=== PATIENT | female | born 1995 | race Caucasian/White ===

== ENCOUNTER 2017-06-16 13:05 | Inpatient (IN) | payer BC, MEDICAID ==
[2017-06-16] MEDS ORDERED: Acetaminophen 325 MG Tab PO PRN (16:56)
[2017-06-16] MEDS ORDERED: Sodium Chloride 0.9% 10 ML Syringe FLUSH PRN (16:56)
[2017-06-16] MEDS ORDERED: ePHEDrine 50 MG/ML SDV IVPUSH ONE (17:00)
[2017-06-16] MEDS ORDERED: Lactated Ringers 1,000 ML IV SCH ×2 (17:00→22:10)
[2017-06-16] MEDS ORDERED: Penicillin G Potassium 5 MILLUNITS in Sodium Chloride 0.9% 100 ML IV ONE (18:09)
[2017-06-16] MEDS: Lactated Ringers 1,000 ML IV SCH ×2 (18:30→22:05)
--- NOTE | 2017-06-16 21:51 | PCM.PNLD ---
Labor Progress Note - VS & Meds Vital Signs: Last Vital Signs Temp 98.7 F 06/16/17 15:41 Pulse 78 06/16/17 17:07 Resp 16 06/16/17 17:07 BP 130/84 06/16/17 17:07 Pulse Ox Active Medications: Current Medications Acetaminophen (Tylenol) 650 mg PO Q4H PRN PRN Reason: Pain/Fever Lactated Ringer's (Ringers, Lactated) 1,000 mls @ 999 mls/min IV ASDIRECTED VESTA Oxytocin/Sodium Chloride (Pitocin In Ns 30 Unit/500 Ml) 30 unit in 500 mls @ 2 mls/hr IV TITRATE VESTA; Protocol Penicillin G Potassium 2.5 (millunits/ Sodium Chloride) 100 mls @ 200 mls/hr IV Q4H VESTA Lactated Ringer's (Ringers, Lactated) 1,000 mls @ 125 mls/hr IV ASDIRECTED VESTA Last Admin: 06/16/17 18:30 Dose: 125 mls/hr Sodium Chloride (Saline Flush) 10 ml FLUSH ASDIRECTED PRN PRN Reason: Keep Vein Open Discontinued Medications Ephedrine Sulfate (Ephedrine Sulfate) 1 mg IVPUSH ONETIME ONE Stop: 06/16/17 17:01 Penicillin G Potassium 5 (millunits/ Sodium Chloride) 100 mls @ 200 mls/hr IV ONETIME ONE Stop: 06/16/17 18:38 Last Admin: 06/16/17 18:31 Dose: 200 mls/hr - Uterine Contractions Uterine Monitoring Mode: IUPC Contraction Frequency (min): 2-5 Contraction Duration (sec): 60-90 Contraction Intensity: Mild to Moderate Uterine Resting Tone: Soft - Monitoring Monitor Mode: External Ultrasound Heart Rate (FHR) Variability: Moderate (6-25 bmp) Accelerations: Present, 15x15 Decelerations: Variable, Intermittent (<50% x 20 min) Strip Review: Category I - Vaginal Exam Dilation (cm): 2.5 Effacement (Percent): 100 Station: -1 Cervical Position: Midposition Sterile Vaginal Exam Performed By: Jaylen Wilson - Labor Progress (Free Text) Labor Progress: Patient tolerating contractions well. Variable decelerations noted. They have improved with position change, and a fluid bolus. No nausea, vomiting or diarrhea. No fever or chills. VSS Afebrile Abdomen: Gravid Non-tender FHT's 130's to 140's Good acels, variable decelerations noted. Genitourinary: Cervix: 2.5 cm/100%/-1 Station, AROM, Clear fluid. IUPC placed. Extremities: No edema or erythema. A: 40 4/7 weeks gestation Oligohydraminos GBS Positive P: Start Pitocin augmentation Will do Normal saline Amnioinfusion 400 mL bolus then 100 mL per hour maintainence. All questions answered.
[2017-06-16] MEDS: Oxytocin/Normal Saline 30 UNIT/500 ML BAG IV SCH (22:08)
[2017-06-16] MEDS ORDERED: Sodium Chloride 0.9% 1,000 ML IV SCH ×2 (22:30→22:34)
[2017-06-16] MEDS: Penicillin G Potassium 2.5 MILLUNITS in Sodium Chloride 0.9% 100 ML IV SCH (22:35)
[2017-06-16] MEDS ORDERED: Carboprost Tromethamine 250 MCG/1 ML Amp IM PRN (23:05)
[2017-06-16] MEDS ORDERED: Methylergonovine 0.2 MG/1 ML Amp IM PRN (23:05)
[2017-06-16] MEDS ORDERED: Misoprostol 400 MCG (4 X 100 MCG TAB) RECTAL PRN (23:05)
[2017-06-16] MEDS ORDERED: Lidocaine 1% 30 ML SDV INJECT PRN (23:05)
[2017-06-16] MEDS ORDERED: Ondansetron 4 MG/2 ML SDV IV PRN (23:05)
[2017-06-16] MEDS ORDERED: Tranexamic Acid 1,000 MG in Sodium Chloride 0.9% 100 ML IV PRN (23:05)
[2017-06-16] MEDS ORDERED: Sodium Chloride 0.9% 1,000 ML IV ONE (23:15)
[2017-06-17] MEDS ORDERED: Bupivacaine 0.75%/D5W 2 ML Amp ONE ×2 (00:19→05:59)
[2017-06-17] MEDS ORDERED: fentaNYL 100 MCG/2 ML SDV ONE ×2 (00:19→05:59)
[2017-06-17] MEDS ORDERED: EPINEPHrine 1 MG/ML SDV ONE ×2 (00:20→06:00)
--- NOTE | 2017-06-17 00:23 | HP ---
CHIEF COMPLAINT: "I think I am in labor." HISTORY OF PRESENT ILLNESS: A 21-year-old 1, para 0, currently at 40 weeks and 4 days' gestation based on 9-week ultrasound, presents to Labor and Delivery reporting irregular contractions beginning at 16:00 p.m. yesterday and lasting through the night. She presents to Labor and Delivery at approximately 1300 hours today saying contractions are now regular approximately 6 minutes apart. She has been having consistent discharge of a runny bloody mucus since these regular contractions began. She was having recurrent variable decelerations so a Ultrasound was ordered and she was found to have a FREDA of 3.5. She was then admitted and started on IV Penicillin G for Group B strep prophylaxis. She denies nausea, right upper quadrant pain, swelling of hands and feet. Denies shortness of breath, cough, or fevers. The patient reports she has had headaches off and on throughout , but isnot having one at the moment. movement has been good for her today. Thepatient was last seen in clinic on June 11 for a routine OB appointment, whereshe was found to be 1 cm dilated, 50% effaced with fetus at a very high station. HISTORY: The patient has had consistent care with Dr. Berkley Carter starting at 5 weeks' gestation. Estimated due date of June 12, 2017 based on 9-week ultrasound showing a single live intrauterine , 21-week ultrasound showing anterior placenta and normal anatomy. Mother with blood type O positive, antibody screen negative, rubella immune, syphilis nonreactive, HIV nonreactive. Wet prep negative for Trichomonas, clue cells, fungus, and yeast. Positive for group B strep. Flu vaccine given on 11/20/2016. Tdap on 03/23/2017. The patient had asymptomatic urinary tract infection in 1st trimester, treated with Macrobid. PAST MEDICAL HISTORY: 1. Irritable bowel syndrome characterized by long periods of constipation with occasional bloody stools. Celiac workup negative. Throughout , this has been causing a large amount of gas in her abdomen, most notable at this admission where heart rate was hard to picker tender through the abdominal distention. 2. Dysmenorrhea, menorrhagia controlled with hormonal control prior to . PAST SURGICAL HISTORY: None. FAMILY HISTORY: Father alive with high cholesterol. Mother alive with anemia. Brother with a severe peanut allergy. Maternal uncle with seizures. Maternal grandmother alive, anemic. Maternal grandfather alive, high cholesterol and dyslipidemia. Paternal grandmother with ulcerative colitis. Paternal grandfather of heart disease. Family history negative for strokes, sudden , defects, cancer, diabetes, clotting disorders, bleeding disorders, and thyroid disorders. SOCIAL HISTORY: The patient is unmarried, in a romantic relationship with father of the baby, Todd Bro. The patient lives in [place] in her own apartment. 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 Todd is living in [place] for the summer and will be returning to [place] for the school year, where he will be teaching [employer] education. CURRENT MEDICATIONS: vitamins with iron. EXPOSURE MEDICATIONS: Macrobid. ALLERGIES: No known allergies. REVIEW OF SYSTEMS: No headache, no blurry vision, chest pain, shortness of breath, fever, chills, nausea, vomiting, diarrhea, or constipation. The patient has now had swelling. No skin rash. No tobacco use. No alcohol use during . The patient has never been a smoker. OBJECTIVE: Vital Signs: Height 5 feet 11 inches, weight 193 pounds. Temperature of 98.6 Fahrenheit, pulse 78, blood pressure 136/82, respiratory rate is 16 on SpO2 of 100% on room air. HEENT: Atraumatic, normocephalic. Neck: Supple. No adenopathy. Heart: Regular S1, S2 in rate and rhythm. No murmur. Lungs: Clear to auscultation bilaterally. Abdomen: Gravid and nontender. Abdomen is tympanic to percussion. Dream catcher tattoo on right chest wall. Baseline heart rate of 140 with moderate variability. Contractions approximately every 5 to 6 minutes apart. Cervix is 3 cm dilated, 100% effaced. Bag of water intact. Variable decelerations off and on. ADMISSION LABORATORY DATA: Hbg 13.6 Plt 149 FREDA of 3.5. ASSESSMENT: 1. This is a 40 week 4 day intrauterine with increasing force and frequency of contractions based on a 9-week ultrasound 2. 1, para 0. 3. Blood type O positive, rubella immune, group B strep positive. 4. Oligohydraminos- FREDA of 3.5. 5. Variable decelerations noted. 6. Group B strep positive. PLAN: At this time, the patient has been admitted to Labor and Delivery. We are expecting a vaginal delivery that will be augmented with Pitocin to increase frequency of contractions. Penicillin G IV to be started per Group B strep protocol. The patient understands that things may change or arise such that she may need alternative delivery such as section or vacuum assisted vaginal delivery. The patient's questions have been answered. Sheridan Rosario scribing for Dr. Jaylen Wilson [facility] /[id number] MTDD
--- NOTE | 2017-06-17 01:16 | PCM.PRNOTE ---
- Free Text/Narrative Note: Requested to provide analgesia to full term patient in severe pain. Upon entering the room, patient is supine in bed complaining of severe abdominal/ pelvic pain and discomfort. Procedure was discussed with patient including adverse outcomes and expectations. Pt consented to analgesia, SAB/IT. Pt placed into a sitting position. Landmarks for SAB/IT were identified and marked. Hands were washed and appropriate PPE was applied. Back was prepped with betadine x3. A sterile, transparent, fenestrated drape was applied. Excess betadine was removed. Using 3 mL of a 1% lidocaine solution, a skin wheel was placed at the L3/L4 interspace. A 24 ga (4 inch) Pencan spinal needle was inserted until positive for CSF. Negative for heme or paresthesias. Injected fentanyl 25 mcg, sufentanil 15 mcg, and 10.5 mg of a 0.75% bupivacaine solution with an epi wash. Pt was placed left lateral position for approximately 20 minutes. There were zero complications or adverse outcomes. Will continue to monitor. Procedure Date & Time: 06/17/17 [id number] (30 min)
[2017-06-17] MEDS: Lactated Ringers 1,000 ML IV SCH ×2 (01:18→19:23)
[2017-06-17] MEDS: Penicillin G Potassium 2.5 MILLUNITS in Sodium Chloride 0.9% 100 ML IV SCH ×5 (02:22→18:38)
[2017-06-17] MEDS ORDERED: Tranexamic Acid 1,000 MG in Sodium Chloride 0.9% 100 ML IV PRN ×4 (06:27)
[2017-06-17] MEDS ORDERED: Misoprostol 400 MCG (4 X 100 MCG TAB) RECTAL PRN (06:27)
[2017-06-17] MEDS ORDERED: Methylergonovine 0.2 MG/1 ML Amp IM PRN (06:27)
[2017-06-17] MEDS ORDERED: ceFAZolin 2 GM in Premix Bag 1 BAG IV ONE (06:27)
[2017-06-17] MEDS ORDERED: ePHEDrine 50 MG/ML SDV IVPUSH PRN (06:27)
[2017-06-17] MEDS ORDERED: Acetaminophen 325 MG Tab PO PRN (06:27)
[2017-06-17] MEDS ORDERED: Ondansetron 4 MG/2 ML SDV IV PRN (06:27)
[2017-06-17] MEDS ORDERED: Zolpidem 5 MG Tab PO PRN (06:27)
[2017-06-17] MEDS ORDERED: Naloxone 2 MG/2 ML Syringe IVPUSH PRN (06:27)
[2017-06-17] MEDS ORDERED: Citric Acid/Sodium Citrate Solution 30 ML Cup PO ONE (06:27)
[2017-06-17] MEDS ORDERED: Carboprost Tromethamine 250 MCG/1 ML Amp IM ONE (06:27)
[2017-06-17] MEDS ORDERED: diphenhydrAMINE 50 MG/ML SDV IVPUSH PRN (06:27)
[2017-06-17] MEDS ORDERED: Sodium Chloride 0.9% 10 ML Syringe FLUSH PRN (06:27)
[2017-06-17] MEDS ORDERED: Ketorolac 30 MG/ML SDV IVPUSH SCH (06:30)
[2017-06-17] MEDS ORDERED: Lactated Ringers 1,000 ML IV SCH ×3 (06:30)
[2017-06-17] MEDS ORDERED: Oxytocin/Normal Saline 60 UNIT/1,000 ML BAG ONE (06:44)
--- NOTE | 2017-06-17 07:02 | PCM.PNLD ---
Labor Progress Note - VS & Meds Vital Signs: Last Vital Signs Temp 99 F 06/17/17 02:05 Pulse 78 06/17/17 04:15 Resp 14 06/17/17 04:15 BP 122/63 06/17/17 04:15 Pulse Ox 98 06/17/17 04:15 Active Medications: Current Medications Acetaminophen (Tylenol) 650 mg PO Q4H PRN PRN Reason: Pain/Fever Acetaminophen (Tylenol) 650 mg PO Q6H PRN PRN Reason: mild pain or fever Carboprost Tromethamine (Hemabate Ds) 250 mcg IM ASDIRECTED PRN PRN Reason: HEMORRHAGE Diphenhydramine HCl (Benadryl) 25 mg IVPUSH Q6H PRN PRN Reason: Itching or Nausea Docusate Sodium (Colace) 100 mg PO Q12H PRN PRN Reason: Constipation Ephedrine Sulfate (Ephedrine Sulfate) 5 mg IVPUSH SEECOMMENT PRN PRN Reason: Other Lactated Ringer's (Ringers, Lactated) 1,000 mls @ 999 mls/min IV ASDIRECTED [facility] Oxytocin/Sodium Chloride (Pitocin In Ns 30 Unit/500 Ml) 30 unit in 500 mls @ 2 mls/hr IV TITRATE [facility]; Protocol Last Titration: 06/16/17 23:54 Dose: 6 mls/hr Penicillin G Potassium 2.5 (millunits/ Sodium Chloride) 100 mls @ 200 mls/hr IV Q4H [facility] Last Admin: 06/17/17 06:00 Dose: 200 mls/hr Lactated Ringer's (Ringers, Lactated) 1,000 mls @ 125 mls/hr IV ASDIRECTED [facility] Last Admin: 06/17/17 01:18 Dose: 125 mls/hr Sodium Chloride (Normal Saline) 400 mls @ 800 mls/hr IV ASDIRECTED [facility] Last Admin: 06/16/17 22:44 Dose: 800 mls/hr Tranexamic Acid 1,000 mg/ (Sodium Chloride) 110 mls @ 660 mls/hr IV ONETIME PRN PRN Reason: Bleeding Tranexamic Acid 1,000 mg/ (Sodium Chloride) 110 mls @ 660 mls/hr IV ONETIME PRN PRN Reason: Bleeding Cefazolin Sodium/Dextrose 2 gm (/ Premix) 50 mls @ 100 mls/hr IV ONETIME ONE Stop: 06/17/17 06:56 Lactated Ringer's (Ringers, Lactated) 1,000 mls @ 125 mls/hr IV ASDIRECTED VESTA Lactated Ringer's (Ringers, Lactated) 1,000 mls @ 500 mls/hr IV .BOLUS VESTA Ibuprofen (Motrin) 800 mg PO Q8H PRN PRN Reason: mild pain or fever Ketorolac Tromethamine (Toradol) 15 mg IVPUSH Q6H [facility] Stop: 06/17/17 18:31 Lidocaine HCl (Xylocaine-Mpf 1%) 10 ml INJECT ASDIRECTED PRN PRN Reason: Perineal Repair Methylergonovine Maleate (Methergine) 0.2 mg IM ASDIRECTED PRN PRN Reason: Hemorrhage Methylergonovine Maleate (Methergine) 0.2 mg IM ONETIME PRN PRN Reason: Excessive Vaginal Bleeding Misoprostol (Cytotec) 800 mcg RECTAL ASDIRECTED PRN PRN Reason: Hemorrhage Misoprostol (Cytotec) 800 mcg RECTAL ASDIRECTED PRN PRN Reason: Excessive bleeding Naloxone HCl (Narcan) 0.1 mg IVPUSH SEECOMMENT PRN PRN Reason: Respiratory Depression Ondansetron HCl (Zofran) 4 mg IV Q4H PRN PRN Reason: Nausea/Vomiting Ondansetron HCl (Zofran) 4 mg IV Q4H PRN PRN Reason: Nausea/Vomiting Oxycodone/Acetaminophen (Percocet 325-5 Mg) 1 - 2 tab PO Q4H PRN PRN Reason: Pain (moderate 4-6) Simethicone (Simethicone) 160 mg PO QID [facility] Sodium Chloride (Saline Flush) 10 ml FLUSH ASDIRECTED PRN PRN Reason: Keep Vein Open Sodium Chloride (Saline Flush) 10 ml FLUSH ASDIRECTED PRN PRN Reason: Keep Vein Open Zolpidem Tartrate (Ambien) 5 mg PO BEDTIME PRN PRN Reason: Insomnia Discontinued Medications Bupivacaine HCl/Dextrose (Marcaine 0.75% Spinal) Confirm Administered Dose 2 ml .ROUTE .STK-MED ONE Stop: 06/17/17 00:20 Bupivacaine HCl/Dextrose (Marcaine 0.75% Spinal) Confirm Administered Dose 2 ml .ROUTE .STK-MED ONE Stop: 06/17/17 06:00 Carboprost Tromethamine (Hemabate Ds) 250 mcg IM ONETIME ONE Stop: 06/17/17 06:28 Citric Acid/Sodium Citrate (Bicitra Solution) 30 ml PO ONETIME ONE Stop: 06/17/17 06:28 Ephedrine Sulfate (Ephedrine Sulfate) 1 mg IVPUSH ONETIME ONE Stop: 06/16/17 17:01 Epinephrine HCl (Adrenalin) Confirm Administered Dose 1 mg .ROUTE .STK-MED ONE Stop: 06/17/17 00:21 Epinephrine HCl (Adrenalin) Confirm Administered Dose 1 mg .ROUTE .STK-MED ONE Stop: 06/17/17 06:01 Fentanyl (Sublimaze) Confirm Administered Dose 100 mcg .ROUTE .STK-MED ONE Stop: 06/17/17 00:20 Fentanyl (Sublimaze) Confirm Administered Dose 100 mcg .ROUTE .STK-MED ONE Stop: 06/17/17 06:00 Penicillin G Potassium 5 (millunits/ Sodium Chloride) 100 mls @ 200 mls/hr IV ONETIME ONE Stop: 06/16/17 18:38 Last Admin: 06/16/17 18:31 Dose: 200 mls/hr Sodium Chloride (Normal Saline) 600 mls @ 100 mls/hr IV ASDIRECTED ONE Stop: 06/17/17 05:14 Last Admin: 06/17/17 05:39 Dose: 100 mls/hr Tranexamic Acid 1,000 mg/ (Sodium Chloride) 110 mls @ 660 mls/hr IV ONETIME PRN PRN Reason: Bleeding Lactated Ringer's (Ringers, Lactated) 1,000 mls @ 125 mls/hr IV ASDIRECTED VESTA Oxytocin/Sodium Chloride (Pitocin In Ns 30 Unit/500 Ml) Confirm Administered Dose 60 unit in 1,000 mls @ as directed .ROUTE .STK-MED ONE Stop: 06/17/17 06:45 Oxycodone/Acetaminophen (Percocet 325-5 Mg) 2 tab PO Q4H PRN PRN Reason: Pain (moderate 4-6) Sufentanil Citrate (Sufenta) Confirm Administered Dose 50 mcg .ROUTE .STK-MED ONE Stop: 06/17/17 00:21 Sufentanil Citrate (Sufenta) Confirm Administered Dose 50 mcg .ROUTE .STK-MED ONE Stop: 06/17/17 06:01 - Uterine Contractions Uterine Monitoring Mode: IUPC Contraction Frequency (min): 2-3 Contraction Duration (sec): 60-70 Contraction Intensity: Moderate to Strong Uterine Resting Tone: Soft - Monitoring Monitor Mode: External Ultrasound Heart Rate (FHR) Variability: Moderate (6-25 bmp) Accelerations: Present, 15x15 Decelerations: Variable, Intermittent (<50% x 20 min) Strip Review: Category I - Vaginal Exam Dilation (cm): 4+ Effacement (Percent): 100 Station: -1 Cervical Position: Midposition Sterile Vaginal Exam Performed By: Riaz Adams Vaginal Exam Comment: Amnioinfusion with normal saline - Labor Progress (Free Text) Labor Progress: The patient has had a intrathecal that has worn off. She is very uncomfortable. She was having late decelerations during the night after the intrathecal and the Pitocin was turned off and the strip improved with good acel's. Her cervix did not change in 4 hours so I was going to turn the Pitocin on but the patient has declined any more Pitocin and with her decelerations and arrest of descent a Primary section was called. the risks, benefits, complications of the section was discussed. Informed consent was obtained and signed. All questions answered.
[2017-06-17] MEDS: Oxytocin/Normal Saline 30 UNIT/500 ML BAG IV SCH (08:45)
[2017-06-17] MEDS: Simethicone 80 MG Tab.Chew PO SCH ×4 (10:18→21:29)
[2017-06-17] MEDS: Ketorolac 30 MG/ML SDV IVPUSH SCH ×2 (14:17→21:32)
[2017-06-17] MEDS: Docusate Sodium 100 MG Cap PO PRN (21:30)
--- NOTE | 2017-06-18 02:36 | PCM.PNPP ---
- General Info Date of Service: 06/18/17 (POD/PPD # 1 S/P Primary LTC/S) Functional Status: Reports: Pain Controlled, Tolerating Diet, Ambulating - Review of Systems General: Reports: No Symptoms HEENT: Reports: No Symptoms Pulmonary: Reports: No Symptoms Cardiovascular: Reports: No Symptoms Gastrointestinal: Reports: No Symptoms Genitourinary: Reports: No Symptoms Musculoskeletal: Reports: No Symptoms Skin: Reports: No Symptoms Neurological: Reports: No Symptoms Psychiatric: Reports: No Symptoms - General Info Date of Service: 06/18/17 (POD/PPD # 1 S/P Primary LTC/S) - Patient Data Vital Signs - Most Recent: Last Vital Signs Temp 98.2 F 06/17/17 16:00 Pulse 67 06/17/17 16:00 Resp 16 06/17/17 16:00 BP 108/57 L 06/17/17 16:00 Pulse Ox 100 06/17/17 16:00 Weight - Most Recent: 193 lb I&O - Last 24 Hours: Intake & Output 06/17/17 06/17/17 06/18/17 14:59 22:59 06:59 Intake Total 1484 Output Total 400 300 Balance 1084 -300 Lab Results - Last 24 Hours: Laboratory Results - last 24 hr 06/16/17 Range/Units 17:05 Blood Type O POSITIVE Gel Antibody Screen Negative Med Orders - Current: Current Medications Acetaminophen (Tylenol) 650 mg PO Q4H PRN PRN Reason: Pain/Fever Acetaminophen (Tylenol) 650 mg PO Q6H PRN PRN Reason: mild pain or fever Carboprost Tromethamine (Hemabate Ds) 250 mcg IM ASDIRECTED PRN PRN Reason: HEMORRHAGE Diphenhydramine HCl (Benadryl) 25 mg IVPUSH Q6H PRN PRN Reason: Itching or Nausea Docusate Sodium (Colace) 100 mg PO Q12H PRN PRN Reason: Constipation Last Admin: 06/17/17 21:30 Dose: 100 mg Ephedrine Sulfate (Ephedrine Sulfate) 5 mg IVPUSH SEECOMMENT PRN PRN Reason: Other Oxytocin/Sodium Chloride (Pitocin In Ns 30 Unit/500 Ml) 30 unit in 500 mls @ 2 mls/hr IV TITRATE VESTA; Protocol Last Titration: 06/17/17 11:18 Dose: 0 munits/min, 0 mls/hr Sodium Chloride (Normal Saline) 400 mls @ 800 mls/hr IV ASDIRECTED [facility] Last Admin: 06/16/17 22:44 Dose: 800 mls/hr Tranexamic Acid 1,000 mg/ (Sodium Chloride) 110 mls @ 660 mls/hr IV ONETIME PRN PRN Reason: Bleeding Lactated Ringer's (Ringers, Lactated) 1,000 mls @ 125 mls/hr IV ASDIRECTED [facility] Last Admin: 06/17/17 11:20 Dose: 125 mls/hr Ibuprofen (Motrin) 800 mg PO Q8H PRN PRN Reason: mild pain or fever Ketorolac Tromethamine (Toradol) 15 mg IVPUSH Q6H [facility] Stop: 06/18/17 02:31 Last Admin: 06/17/17 21:32 Dose: 15 mg Methylergonovine Maleate (Methergine) 0.2 mg IM ONETIME PRN PRN Reason: Excessive Vaginal Bleeding Misoprostol (Cytotec) 800 mcg RECTAL ASDIRECTED PRN PRN Reason: Excessive bleeding Naloxone HCl (Narcan) 0.1 mg IVPUSH SEECOMMENT PRN PRN Reason: Respiratory Depression Ondansetron HCl (Zofran) 4 mg IV Q4H PRN PRN Reason: Nausea/Vomiting Oxycodone/Acetaminophen (Percocet 325-5 Mg) 1 - 2 tab PO Q4H PRN PRN Reason: Pain (moderate 4-6) Simethicone (Simethicone) 160 mg PO QID [facility] Last Admin: 06/17/17 21:29 Dose: 160 mg Sodium Chloride (Saline Flush) 10 ml FLUSH ASDIRECTED PRN PRN Reason: Keep Vein Open Zolpidem Tartrate (Ambien) 5 mg PO BEDTIME PRN PRN Reason: Insomnia Discontinued Medications Bupivacaine HCl/Dextrose (Marcaine 0.75% Spinal) Confirm Administered Dose 2 ml .ROUTE .STK-MED ONE Stop: 06/17/17 00:20 Last Admin: 06/17/17 10:01 Dose: Not Given Bupivacaine HCl/Dextrose (Marcaine 0.75% Spinal) Confirm Administered Dose 2 ml .ROUTE .STK-MED ONE Stop: 06/17/17 06:00 Last Admin: 05/13/18 10:02 Dose: Not Given Carboprost Tromethamine (Hemabate Ds) 250 mcg IM ONETIME ONE Stop: 06/17/17 06:28 Last Admin: 06/17/17 10:02 Dose: Not Given Citric Acid/Sodium Citrate (Bicitra Solution) 30 ml PO ONETIME ONE Stop: 06/17/17 06:28 Last Admin: 06/17/17 07:00 Dose: 30 ml Ephedrine Sulfate (Ephedrine Sulfate) 1 mg IVPUSH ONETIME ONE Stop: 06/16/17 17:01 Last Admin: 06/17/17 10:18 Dose: Not Given Epinephrine HCl (Adrenalin) Confirm Administered Dose 1 mg .ROUTE .STK-MED ONE Stop: 06/17/17 00:21 Last Admin: 06/17/17 10:01 Dose: Not Given Epinephrine HCl (Adrenalin) Confirm Administered Dose 1 mg .ROUTE .STK-MED ONE Stop: 06/17/17 06:01 Last Admin: 06/17/17 10:02 Dose: Not Given Fentanyl (Sublimaze) Confirm Administered Dose 100 mcg .ROUTE .STK-MED ONE Stop: 06/17/17 00:20 Last Admin: 06/17/17 10:01 Dose: Not Given Fentanyl (Sublimaze) Confirm Administered Dose 100 mcg .ROUTE .STK-MED ONE Stop: 06/17/17 06:00 Last Admin: 06/17/17 10:02 Dose: Not Given Lactated Ringer's (Ringers, Lactated) 1,000 mls @ 999 mls/min IV ASDIRECTED [facility] Last Admin: 06/17/17 06:45 Dose: 999 mls/min Penicillin G Potassium 5 (millunits/ Sodium Chloride) 100 mls @ 200 mls/hr IV ONETIME ONE Stop: 06/16/17 18:38 Last Admin: 06/16/17 18:31 Dose: 200 mls/hr Penicillin G Potassium 2.5 (millunits/ Sodium Chloride) 100 mls @ 200 mls/hr IV Q4H [facility] Last Admin: 06/17/17 18:38 Dose: Not Given Lactated Ringer's (Ringers, Lactated) 1,000 mls @ 125 mls/hr IV ASDIRECTED [facility] Last Admin: 06/17/17 19:23 Dose: 125 mls/hr Sodium Chloride (Normal Saline) 600 mls @ 100 mls/hr IV ASDIRECTED ONE Stop: 06/17/17 05:14 Last Admin: 06/17/17 05:39 Dose: 100 mls/hr Tranexamic Acid 1,000 mg/ (Sodium Chloride) 110 mls @ 660 mls/hr IV ONETIME PRN PRN Reason: Bleeding Tranexamic Acid 1,000 mg/ (Sodium Chloride) 110 mls @ 660 mls/hr IV ONETIME PRN PRN Reason: Bleeding Cefazolin Sodium/Dextrose 2 gm (/ Premix) 50 mls @ 100 mls/hr IV ONETIME ONE Stop: 06/17/17 06:56 Last Admin: 06/17/17 07:18 Dose: 100 mls/hr Lactated Ringer's (Ringers, Lactated) 1,000 mls @ 125 mls/hr IV ASDIRECTED [facility]STA Lactated Ringer's (Ringers, Lactated) 1,000 mls @ 500 mls/hr IV .BOLUS [facility] Oxytocin/Sodium Chloride (Pitocin In Ns 30 Unit/500 Ml) Confirm Administered Dose 60 unit in 1,000 mls @ as directed .ROUTE .STGe.tt-MED ONE Stop: 06/17/17 06:45 Ketorolac Tromethamine (Toradol) 15 mg IVPUSH Q6H [facility] Stop: 06/17/17 18:31 Lidocaine HCl (Xylocaine-Mpf 1%) 10 ml INJECT ASDIRECTED PRN PRN Reason: Perineal Repair Methylergonovine Maleate (Methergine) 0.2 mg IM ASDIRECTED PRN PRN Reason: Hemorrhage Misoprostol (Cytotec) 800 mcg RECTAL ASDIRECTED PRN PRN Reason: Hemorrhage Ondansetron HCl (Zofran) 4 mg IV Q4H PRN PRN Reason: Nausea/Vomiting Oxycodone/Acetaminophen (Percocet 325-5 Mg) 2 tab PO Q4H PRN PRN Reason: Pain (moderate 4-6) Sodium Chloride (Saline Flush) 10 ml FLUSH ASDIRECTED PRN PRN Reason: Keep Vein Open Sufentanil Citrate (Sufenta) Confirm Administered Dose 50 mcg .ROUTE .STK-MED ONE Stop: 06/17/17 00:21 Last Admin: 06/17/17 10:02 Dose: Not Given Sufentanil Citrate (Sufenta) Confirm Administered Dose 50 mcg .ROUTE .STK-MED ONE Stop: 06/17/17 06:01 Last Admin: 06/17/17 10:02 Dose: Not Given - Infant Interaction Infant Disposition, : [place] to Nursery Interaction: Holding Infant Feeding: Bottle Fed Infant, Encouraged to Breastfeed Support Person: Sister, Significant Other - Recovery Exam Fundal Tone: Firm Fundal Level: 1 Fingerbreadths Below Umbilicus Fundal Placement: Midline Lochia Amount: Scant Lochia Color: Rubra/Red Perineum Description: Intact, Minimal Bruising/Swelling Bladder Status: Indwelling Catheter in Place Urinary Elimination: Indwelling Catheter - Exam General: Alert, Oriented, Cooperative, No Acute Distress HEENT: Pupils Equal, Pupils Reactive, Mucous Membr. Moist/[place] Neck: Supple Lungs: Clear to Auscultation, Normal Respiratory Effort Cardiovascular: Regular Rate, Regular Rhythm, No Murmurs GI/Abdominal Exam: Normal Bowel Sounds, Soft, Non-Tender, No Organomegaly, No Distention Extremities: Normal Inspection, Normal Range of Motion, Non-Tender, No Pedal Edema Skin: Warm, Dry, Intact Wound/Incisions: Healing Well, No Drainage Neurological: No New Focal Deficit, Normal Speech, Normal Tone Psy/Mental Status: Alert, Normal Affect, Normal Mood - Problem List Review Problem List Initiated/Reviewed/Updated: Yes - My Orders Last 24 Hours: My Active Orders 06/17/17 06:27 Consult to Director Systems [CONS] Routine Acetaminophen [Tylenol] 650 mg PO Q6H PRN Acetaminophen/oxyCODONE [Percocet 325-5 MG] 1 - 2 tab PO Q4H PRN Docusate Sodium [Colace] 100 mg PO Q12H PRN Methylergonovine [Methergine] 0.2 mg IM ONETIME PRN Misoprostol [Cytotec] 800 mcg RECTAL ASDIRECTED PRN Naloxone [Narcan] 0.1 mg IVPUSH SEECOMMENT PRN Ondansetron [Zofran] 4 mg IV Q4H PRN Sodium Chloride 0.9% [Saline Flush] 10 ml FLUSH ASDIRECTED PRN Tranexamic Acid [Cyklokapron] 1,000 mg Sodium Chloride 0.9% [Normal Saline] 100 ml IV ONETIME Zolpidem [Ambien] 5 mg PO BEDTIME PRN diphenhydrAMINE [Benadryl] 25 mg IVPUSH Q6H PRN ePHEDrine [ePHEDrine Sulfate] 5 mg IVPUSH SEECOMMENT PRN 06/17/17 06:30 Lactated Ringers [Ringers, Lactated] 1,000 ml IV ASDIRECTED 06/17/17 06:31 Communication Order [RC] PER UNIT ROUTINE Communication Order [RC] Per Unit Routine RT Incentive Spirometry [RC] Q2HWA Urinary Catheter Removal [RC] Per Unit Routine Vital Signs [RC] 00,04,08,12,16,20 Antiembolic Hose [OM.PC] Per Unit Routine Assess Lochia [WOMSER] Per Unit Routine Assess Uterine Involution [WOMSER] Per Unit Routine Breast Pump [WOMSER] Per Unit Routine Peripheral IV Insertion Adult [OM.PC] Routine Schedule Procedure [COMM] Per Unit Routine Sequential Compression Device [OM.PC] Per Unit Routine 06/17/17 06:32 Intake and Output [RC] Q8H Peripheral IV Care [RC] 09,21 Abdominal Binder [OM.PC] Per Unit Routine Heat Therapy [OM.PC] Per Unit Routine Ice Therapy [OM.PC] Per Unit Routine 06/17/17 06:39 Notify Provider Intake and Out [RC] ASDIRECTED 06/17/17 09:00 Simethicone 160 mg PO QID 06/17/17 14:30 Ketorolac [Toradol] 15 mg IVPUSH Q6H 06/17/17 Dinner Regular Diet [DIET] 06/17/17 Lunch Clear Liquid Diet [DIET] 06/18/17 02:00 Ibuprofen [Motrin] 800 mg PO Q8H PRN 06/18/17 06:31 CBC W/O DIFF,HEMOGRAM [HEME] Routine - Assessment Assessment:: POD/PPD # 1 S/P Primary LTC/S Doing well Incisional pain - Plan Plan:: Continue present care Will take out Guerin today Increase ambulation CBC pending
[2017-06-18] MEDS: Ketorolac 30 MG/ML SDV IVPUSH SCH (02:41)
--- NOTE | 2017-06-18 07:26 | OR ---
DATE: 06/17/2017 PREOPERATIVE DIAGNOSES: 1. A 40 and 5/7-week intrauterine . 2. Oligohydramnios. 3. Variable and late decelerations. 4. intolerance to labor. 5. Arrest of dilation. 6. Group B streptococcus positive vaginal culture. POSTOPERATIVE DIAGNOSES: 1. A 40 and 5/7-week intrauterine . 2. Oligohydramnios. 3. Variable and late decelerations. 4. intolerance to labor. 5. Arrest of dilation. 6. Group B streptococcus positive vaginal culture. 7. Delivery of a viable male infant weighing 7 pounds 10 ounces with scores of 9 at 1 minute and 9 at 5 minutes. 8. Nuchal cord x2. 9. True knot in cord. PROCEDURE: Primary low transverse section via Pfannenstiel skin incision. NETEZZA ARCHITECT: Jaun Morris MD. SECOND NETEZZA ARCHITECT: SEKOU CarballoIII. COMPLICATIONS: None. PATHOLOGY: Right paratubal cyst. ANESTHESIA: Spinal anesthesia with Duramorph. ESTIMATED BLOOD LOSS: 800 mL. FLUIDS: Crystalloid/LR. DRAINS: Guerin catheter. FINDINGS: Viable male infant weighing 7 pounds 10 ounces. scores of 9 at 1 minute and 9 at 5 minutes. Normal uterus and ovaries. Bilateral paratubal cysts, right much larger than left with a portion of the right paratubal cyst sent to Pathology. INDICATIONS FOR DELIVERY: Mrs. Bauman is a 21-year-old, 1, para 0 female, who reported to Labor and Delivery at 40 and 4/7 weeks' gestation with increasing force and frequency of contractions. On admission, she was noted to have variable decelerations that were recurrent, so an ultrasound was accomplished which showed an FREDA of 3.5. With that, she was admitted, and she dilated on her own until she was 3 cm dilated, 100% effaced, -1 station. Because she was group B strep vaginal culture positive, she did receive penicillin G IV. Once she had a couple of doses in, artificial rupture of membranes occurred, and intrauterine pressure catheter was placed, and she had Pitocin augmentation. The infant and the patient actually tolerated labor quite well. We did start an amnio infusion of 400 mL bolus of normal saline with 100 mL/h maintenance to help with the variable decelerations, which they did. She got very uncomfortable, so intrathecal anesthesia was placed. Then, the fetus started having some late decelerations that were recurrent, so the Pitocin was turned off. The decelerations improved with fluid bolus and change of position to the left lateral decubitus along with turning off Pitocin, but the patient did not change in over 4 hours her dilation from 4.5 cm and did not descend below -1 station, so we are going to start Pitocin again along with giving the patient intrathecal, but she declined. She did not want the Pitocin on any more. She did not want the baby to be under any distress, and she stated that her mom and sister both had sections, so she knows that she needs a section. With her declining any further therapy or Pitocin and with no descent or dilatation and with her having the decelerations, it was decided that a section should be performed. The risks, benefits, complications, and side effects of the procedure were discussed with the patient including infection; bleeding; injury to the bowel, bladder, ureters, blood vessels, and other organs along with the fetus. Despite this, she still wanted to have the procedure done, so we did take her back for this. PROCEDURE IN DETAIL: The patient was taken to the operating room with an IV running. She was placed supine on the operating room table after adequate spinal anesthesia was obtained. She was then prepped and draped in the usual sterile fashion in dorsal supine position with a leftward tilt. After time-out was accomplished, a Pfannenstiel skin incision was then made. This was carried down the fascia with care. The fascia was nicked in midline, extended laterally. The fascia was taken off the rectus muscles superiorly and inferiorly. The rectus muscles were in the midline. The peritoneal cavity was entered. An [place] O-ring retractor was then placed. A low transverse incision in the uterus was then accomplished. The infant's head was then brought through the incision as well as the rest of the infant. There was a double nuchal cord noted loosely around the neck along with a true knot. The sutures were reduced. The cord was clamped and cut. The was handed off to the nurses and Dr. Morris who was in attendance. Cord blood was obtained. The placenta was then delivered by simple expression intact. The uterus was then cleared of all clots and debris. The uterus was then reapproximated and closed in a double-layer closure of #1 Vicryl suture. Excellent hemostasis was noted. At this point, the paratubal cysts were removed from the tubes, and a portion of the right paratubal cyst was sent to Pathology. The entire pelvis and abdomen were irrigated with a liter of sterile water. Excellent hemostasis was noted. The [place] retractor was removed from the abdomen. Excellent hemostasis was noted. The gutters were cleared of all clots and debris. Incision was dry. The rectus muscle and peritoneum were reapproximated with 0 chromic suture in a running, nonlocked fashion. Excellent hemostasis was noted. The fascia was then reapproximated with 0 PDS suture in a running, nonlocked fashion. Excellent hemostasis was noted. The subcutaneous tissue was irrigated with warm sterile water. Excellent hemostasis was noted. It was dried. The skin was then reapproximated with 3-0 Monocryl suture in a running, nonlocking, subcuticular fashion. Excellent hemostasis was noted. Dermabond was placed over the wound. The patient tolerated the procedure quite well. All sponge, needle, and instrument counts were correct by the nurse in attendance x2. The patient received 2 g of Ancef IV before the procedure. The patient received 20 units of Pitocin after delivery of the placenta. The uterus was firm and at the umbilicus at the end of the procedure. There was clear yellow urine noted to emanate from the Guerin catheter throughout the entire procedure. The patient was taken to PACU awake in stable condition. The infant was taken to the Nursery. [facility] /[id number]
[2017-06-18] MEDS: Acetaminophen/oxyCODONE 325-5 MG Tab PO PRN ×3 (09:21→19:32)
[2017-06-18] MEDS: Prenatal Multivitamin with Calcium/Folic Acid/Iron Tab PO SCH (09:21)
[2017-06-18] MEDS: Docusate Sodium 100 MG Cap PO PRN ×2 (09:21→21:20)
[2017-06-18] MEDS: Simethicone 80 MG Tab.Chew PO SCH ×4 (09:22→21:20)
--- NOTE | 2017-06-18 09:53 | PN ---
DATE: 06/18/2017 SUBJECTIVE: Postop day #1 from primary section. Mother states she is feeling well. Has been ambulating in her room and in the hallways. Guerin catheter was removed this morning; has not yet had the urine output. She not had a bowel movement, but is passing gas. She is tolerating normal diet. She is currently pumping breast milk and using bottle-feeding. Her lochia or bloody discharge has been decreasing in amount. She denies headache, shortness of breath, abdominal pain, or new swelling of hands or feet, or vision changes. OBJECTIVE: Vital Signs: Temperature 98.6, pulse of 68, blood pressure 105/41, respiratory rate 16, and 98% oxygen saturation on room air. Head: Normocephalic. Mucous membranes are moist. Eyes: Pupils are PERRLA. Heart: Regular without murmur. S1, S2 and regular rate and rhythm. Lungs: Clear to auscultation bilaterally. No wheezes or rhonchi. Abdomen: Soft and nontender. Bowel sounds active in the upper quadrants. Fundus is firm below the umbilicus. There is a low transverse incision closed with subcutaneous sutures and Dermabond with no radiating erythema or tenderness. LABORATORY DATA: Platelets 103. Hemoglobin of 8.6, decreased from 13.6 prior to surgery ASSESSMENT: 1. Primary section for 40 weeks 5 days' gestation for failure to progress 2. A 21-year-old, 1, para 1-0-0-1. 3. Blood type O positive, rubella immune, Group B Streptococcus positive. 4. . PLAN: Continue routine cares. Expecting discharge home Sunday morning of postop day 3. Followup will be with Dr. Avery in the clinic later this week. [facility] /[id number] Patient seen and examined. Agree with note as scribed on my behalf by Sheridan Rosario MS3. -[facility] 06/20/[id number]. [facility]
[2017-06-18] MEDS: Ibuprofen 800 MG Tab PO PRN ×2 (12:20→21:20)
[2017-06-19] MEDS: Acetaminophen/oxyCODONE 325-5 MG Tab PO PRN ×4 (01:24→21:47)
[2017-06-19] MEDS: Ibuprofen 800 MG Tab PO PRN ×3 (05:50→21:48)
[2017-06-19] MEDS: Simethicone 80 MG Tab.Chew PO SCH ×4 (08:42→21:47)
[2017-06-19] MEDS: Docusate Sodium 100 MG Cap PO PRN ×2 (08:43→21:47)
[2017-06-19] MEDS: Prenatal Multivitamin with Calcium/Folic Acid/Iron Tab PO SCH (08:43)
[2017-06-19] MEDS ORDERED: Morphine PF 1 MG/ML Amp ONE (10:04)
[2017-06-19] MEDS ORDERED: Ketorolac 30 MG/ML SDV IVPUSH ONE (10:04)
[2017-06-19] MEDS ORDERED: Dexamethasone 4 MG/ML SDV IV ONE (10:04)
[2017-06-19] MEDS ORDERED: Bupivacaine 0.75%/D5W 2 ML Amp ONE ×2 (10:04→10:06)
[2017-06-19] MEDS ORDERED: Ondansetron 4 MG/2 ML SDV IV ONE (10:04)
[2017-06-19] MEDS ORDERED: EPINEPHrine 1 MG/ML SDV ONE (10:06)
[2017-06-19] MEDS ORDERED: fentaNYL 100 MCG/2 ML SDV ITHECAL ONE (10:06)
--- NOTE | 2017-06-19 11:24 | PN ---
DATE: 06/19/2017 SUBJECTIVE: Day 2 postop primary section. The patient states she is feeling well. Has been ambulating in the hallways and would like to take a shower today. She is having flatulence, has not had a bowel movement, was able to void yesterday after Guerin removal. Tolerating a normal diet. She and her significant other are interested in having a circumcision for their son. She has had no shortness of breath and no headache. Denies abdominal pain, fever, chills, swelling of hands or feet, or vision changes. She is pumping breast milk and using that and bottle feeding. OBJECTIVE: Vital Signs: Temperature 97.8, pulse is 72, blood pressure 122/66, respiratory rate of 16, and 100% oxygen saturation on room air. HEENT: Head is normocephalic and atraumatic. Mucosal membranes are moist. Heart: Regular without murmur. S1, S2 and regular rate and rhythm. Lungs: Clear to auscultation bilaterally. No rhonchi or wheezes. Abdomen: Soft and nontender. Bowel sounds auscultated in superior quadrants. Fundus is firm at the umbilicus and is nontender. Incision is well healing. No erythema or induration or tenderness. Extremities: No edema, erythema, or cyanosis. Skin: Warm and dry. LABORATORY DATA: None for today. ASSESSMENT: 1. Postoperative day 2 from primary section at 40 weeks 5 days' gestation. 2. 1, para 1-0-0-1. 3. Blood type O positive, rubella immune, group B strep positive, treated with penicillin. 4. Breast feeding by breast pumping. PLAN: Continue routine cares. The patient is allowed to shower today and is able to walk in the courtyard. Expecting discharge home tomorrow morning on postop day 3. Discussed with the patient and significant other that circumcision is best done in the clinic due to 's feeding difficulties at this time. They are in agreement with this plan. Followup will be with Dr. Avery in clinic. Date and time of due will be determined. [facility] /[id number] Patient seen and examined. Agree with note as scribed on my behalf by Sheridan Rosario , MS3. -[employer] 06/20/172039. [facility]
[2017-06-19] MEDS ORDERED: Oxytocin/Normal Saline 30 UNIT/500 ML BAG IV ONE (11:38)
[2017-06-20] MEDS ORDERED: Bisacodyl 10 MG Supp RECTAL ONE (06:42)
[2017-06-20] MEDS: Simethicone 80 MG Tab.Chew PO SCH (08:34)
[2017-06-20] MEDS: Prenatal Multivitamin with Calcium/Folic Acid/Iron Tab PO SCH (08:35)
[2017-06-20] MEDS: Ibuprofen 800 MG Tab PO PRN (08:35)
[2017-06-20] MEDS: Docusate Sodium 100 MG Cap PO PRN (08:36)
[2017-06-20] MEDS: Acetaminophen/oxyCODONE 325-5 MG Tab PO PRN (08:42)
--- NOTE | 2017-06-21 05:27 | DISCH ---
ADMISSION DIAGNOSES: 1. A 40-5/7 weeks' gestation by a 9-week ultrasound. 2. 1, para 0. 3. Primary section for failure to progress in labor. 4. Blood type O positive, rubella immune, and group B Streptococcus positive, treated with penicillin. DISCHARGE DIAGNOSES: 1. A 40 weeks 5 days' gestation based on 9-week ultrasound. 2. 1, now para 1-0-0-1. 3. Primary section for failure to progress in labor. 4. Blood type O positive, rubella immune, and group B Streptococcus positive, treated with penicillin. 5. via pumping and bottle feeds. BRIEF HISTORY: A 21-year-old female with the above-listed diagnoses presented to the hospital with increasing severity of contraction type pain, complaining of a runny bloody mucus discharge, at the same time the pain started. The patient's ultrasound found an FREDA of 3.5. IUPC was placed, and amnioinfusion was started. The patient received 1 intrathecal and reach dilation of 5 cm. The patient declined progression of labor with Pitocin and intrathecal and was admitted for section for failure to progress beyond 5 cm to labor. See history and physical and operative note for full details. HOSPITAL COURSE: The patient had primary section for failure to progress in labor and delivered a viable male with scores of 9 and 9; 3445 g, 7 pounds 10 ounces; 21 inches long. Since delivery, she has been ambulating, tolerating a regular diet, and voiding without complication. The patient had a bowel movement today, which she feels has improved the abdominal gas bubble that was present the majority of the time. She has been pumping breast milk and has been using this breast milk to bottle feed her . Incision site has been healing well with no erythema or induration. DISCHARGE CONDITION: Good. PHYSICAL EXAMINATION: Vital Signs: Temperature of 98.5, pulse of 78, blood pressure 121/87, respiratory rate of 16, and SpO2 of 100% on room air. Heart: Regular without murmur. Lungs: Clear to auscultation bilaterally. Abdomen: Soft and nontender. Fundus is firm, below the umbilicus. Upper quadrants are tympanic to percussion with palpable gas bubble. Extremities: No edema, erythema, or tenderness noted. LABORATORY DATA: Admission hemoglobin of 13.6 and discharge hemoglobin of 9.6. DISPOSITION: Home with family. MEDICATIONS: 1. Ibuprofen 800 mg 3 times a day as needed for pain. 2. Colace 100 mg twice a day as needed for constipation. 3. Percocet 5/325 mg 1 to 2 tablets as needed for pain every 4 to 6 hours. 4. vitamins with iron everyday. INSTRUCTIONS: The patient is discharged home today with family. She has an appointment with Dr. Avery on Sunday at 3:00 p.m. for baby weight check, at that time we will also do an incision check. The patient needs to make an appointment with Dr. Avery for 6-week examination. She should not lift anything over 25 pounds and needs to be on pelvic rest for those 6 weeks. The patient is starting nursing classes next week and needs to discuss with her instructors about light duty and what activity she is able to do post section. Routine postcesarean section instructions were provided, and her questions were answered. [facility] /[id number]
== END 2017-06-20 11:45 | disposition home or self-care (01) | DRG 540 ==
LOC: DL.OBCHECK 13:05 → DL.OB 16:54 → OBSVTOIN 06-17 07:48
PROVIDERS: ADMIT Obstetrics & Gynecology; ATTEND Family Medicine
PROC: 10D00Z1 Extraction of Products of Conception, Low, Open Approach (ICD-10-PCS; principal; 2017-06-17)
PROC: 0UB50ZX Excision of Right Fallopian Tube, Open Approach, Diagnostic (ICD-10-PCS; 2017-06-17)
DX: O62.0 Primary inadequate contractions (principal); O76 Abnormality in fetal heart rate and rhythm complicating labor and delivery; Z3A.40 40 weeks gestation of pregnancy; Z37.0 Single live birth; O99.824 Streptococcus B carrier state complicating childbirth; O41.03X0 Oligohydramnios, third trimester, not applicable or unspecified; O62.1 Secondary uterine inertia; O75.89 Other specified complications of labor and delivery; N83.8 Other noninflammatory disorders of ovary, fallopian tube and broad ligament; O69.2XX0 Labor and delivery complicated by other cord entanglement, with compression, not applicable or unspecified; O99.613 Diseases of the digestive system complicating pregnancy, third trimester; K58.1 Irritable bowel syndrome with constipation
CPT/HCPCS: 36415; 59025; 76815; 85018; 85027; 85049; 86850; 86900; 86901; A9270-GY; J0171; J0690; J1100; J1885; J2274; J2405; J2540; J2590; J3010; J7030; J7050; J7120

== ENCOUNTER 2025-01-14 09:16 | Emergency (ER) | payer OTHER ==
[2025-01-14] MEDS ORDERED: Sodium Chloride 0.9% 10 ML Syringe FLUSH PRN (09:54)
[2025-01-14 10:02] LABS: APPEARANCE,URINE SLIGHTLY CLOUDY (CLEAR); GLUCOSE,URINE NEGATIVE (NEGATIVE); OCCULT BLOOD,URINE NEGATIVE (NEGATIVE)
[2025-01-14 10:05] LABS: BASOPHILS PERCENT AUTO 0.0 % (0.0-1.0); EOSINOPHILS PERCENT AUTO 0.1 % (1.0-3.0); LYMPHOCYTES PERCENT AUTO 7.2 % (20.5-50.1); MONOCYTES PERCENT AUTO 6.1 % (2-8); NEUTROPHILS PERCENT AUTO 86.6 % (42.2-75.2); PLATELET COUNT,PLT 158 10^3/uL (150-450); RED BLOOD CELL COUNT 4.15 10^6/uL (4.2-5.4); WHITE BLOOD CELL COUNT,WBC 7.9 10^3/uL (5.0-10.0)
[2025-01-14 10:08] LABS: EPITHELIAL CELLS,URINE FEW /HPF (NOT SEEN)
[2025-01-14 10:27] LABS: A/G RATIO 1.1; ALANINE AMINOTRANSFERASE,ALT 13.0 U/L (14-59); ASPARTATE AMNIOTRANSFERASE,AST 8.0 U/L (15-37); BILIRUBIN TOTAL 0.6 mg/dL (0.2-1.0); BLOOD UREA NITROGEN,BUN 10.0 mg/dL (7-18); CARBON DIOXIDE,CO2 26.0 mmol/L (21-32); CHLORIDE,CL 98.0 mmol/L (98-107); CREATININE 1.06 mg/dL (0.55-1.02); EST CRCL DRUG DOSING (CG) 86.74 mL/min; GLUCOSE RANDOM 100.0 mg/dL (70-99); POTASSIUM,K 3.7 mmol/L (3.5-5.1); PROTEIN TOTAL,TP 7.4 g/dL (6.4-8.2); SODIUM,NA 135.0 mmol/L (136-145)
[2025-01-14 10:28] LABS: ESTIMATED GFR 72.0 mL/min (>=60)
== END 2025-01-14 11:00 | disposition home or self-care (01) ==
LOC: DL.ED 09:16
DX: O98.511 Other viral diseases complicating pregnancy, first trimester (principal); J10.1 Influenza due to other identified influenza virus with other respiratory manifestations; O99.281 Endocrine, nutritional and metabolic diseases complicating pregnancy, first trimester; E86.0 Dehydration; Z79.899 Other long term (current) drug therapy; Z86.16 Personal history of COVID-19; Z3A.08 8 weeks gestation of pregnancy
CPT/HCPCS: 36415; 80053; 81001; 84702; 85025; 87040; 87428; 96360; 99284; A9270; J7030